=== PATIENT | female | born 1950 | race Hispanic/Latino ===

== ENCOUNTER → 2025-03-14 | Outpatient (CLI) | payer OTHER, MEDICAID ==
[2025-03-14 21:43] VITALS: PULSE 57; RESP 10
[2025-03-14 22:00] VITALS: PULSE 53; RESP 18
[2025-03-14 22:30] VITALS: PULSE 52; RESP 16
[2025-03-14 23:00] VITALS: PULSE 51; RESP 14
[2025-03-14 23:31] VITALS: PULSE 49; RESP 14
[2025-03-15] VITALS (11 sets, daily range): PULSE 40–54; RESP 10–16
== END | disposition home or self-care (01) ==
LOC: SLP 20:22
PROVIDERS: ATTEND Internal Medicine Cardiovascular Disease
DX: G47.33 Obstructive sleep apnea (adult) (pediatric) (principal)
CPT/HCPCS: 95810

== ENCOUNTER → 2025-03-21 | Outpatient (CLI) | payer OTHER, MEDICAID ==
[2025-03-21 22:43] VITALS: PULSE 59; RESP 10
[2025-03-21 23:00] VITALS: PULSE 59; RESP 16
[2025-03-21 23:30] VITALS: PULSE 56; RESP 14
[2025-03-21 23:43] VITALS: PULSE 58; RESP 15
[2025-03-22] VITALS (13 sets, daily range): PULSE 32–64; RESP 9–19
== END | disposition home or self-care (01) ==
LOC: SLP 20:38 → EDUNIT# 04-22 20:30
PROVIDERS: ATTEND Internal Medicine Cardiovascular Disease
DX: G47.33 Obstructive sleep apnea (adult) (pediatric) (principal)
CPT/HCPCS: 95811